=== PATIENT | female | born 1965 | race Caucasian/White ===

== ENCOUNTER → 2019-04-27 13:04 | Outpatient (CLI) | payer OTHER, SELFPAY ==
[2019-05-01 07:07] LABS: QNTFERON TB Mitogen Value > 10.00 IU/mL (.); QNTFERON TB Nil Value 0.03 IU/mL (.); QNTFERON TB1+ Ag Value 0.02 IU/mL (.); QNTFERON TB2+ Ag Value 0.02 IU/mL (.)
[2019-05-01 15:47] LABS: QNTIFERON TB Positive Criteria Negative (Negative)
== END ==
PROVIDERS: PCP Physician Assistant; Referring Provider Internal Medicine Pulmonary Disease; Visit Provider Internal Medicine Pulmonary Disease
DX: R91.1 Solitary pulmonary nodule (principal)
CPT/HCPCS: 36415; 86480